=== PATIENT | male | born 1970 | race Caucasian/White ===

== ENCOUNTER 2023-02-08 11:15 | Emergency (ER) | payer OTHER, SELFPAY ==
[2023-02-08] VITALS (9 sets, daily range): BP systolic 114–157; BP diastolic 77–87; PULSE 70–79; RESP 15–24; TEMP 36.4–36.5; O2SAT 96–100
--- NOTE | ~2023-02-08 | US_ITS ---
US venous doppler LE DATE: 02/08/2023 13:18 INDICATION: Swelling and discoloration of left lower extremity for 2 weeks. History of deep venous th rombosis TECHNIQUE: Real-time and color flow imaging and Doppler analysis of the left lower extremity COMPARISON: None FINDINGS: There is partial thrombosis of the left greater saphenous vein of undetermined age. Thrombus is identified within the left popliteal vein There is flow in the left common femoral and proximal femoral vein. The distal femoral vein is not we ll demonstrated. Flow is demonstrated in the left posterior tibial vein. The peroneal veins are not visualized. IMPRESSION: Age-indeterminate thrombus was identified within the left greater saphenous vein and popl iteal vein. Left peroneal vein is not visualized. Reviewed, dictated and finalized at [facility]. Reviewed, dictated and finalized at [facility]. IMPRESSION: Age-indeterminate thrombus was identified within the left greater s aphenous vein and popliteal vein. Left peroneal vein is not visualized.
--- NOTE | 2023-02-08 13:30 | ED.EXTPRO ---
HPI - Extremity Problem General Chief complaint: Extremity Problem,Nontraumatic <Kiaa Kearns PA-C - Last Filed: 02/08/23 16:20> Stated complaint: left leg swelling <JOSUE Klein Last Filed: 02/08/23 16:20> Time Seen by Provider: 02/08/23 13:22 <JOUSE Klein Last Filed: 02/08/23 16:20> History of Present Illness HPI Narrative: 52 y/o M with prior hx of DVT in LLE reports for evaluation of LLE edema for the past couple of weeks. Pt states he was dx with DVT about 1.5 years ago and was taking Eliquis, however he would frequently miss doses. States he self discontinued his Eliquis ~3 months ago and thereafter developed more pain and swelling in his L leg. He denies chest pain, dyspnea, lightheadedness, syncope, fever. <Kaia Kearns PA-C - Last Filed: 02/08/23 16:20> Related Data Allergies/Adverse reactions: Allergies Allergy/AdvReac Type Severity Reaction Status Date / Time No Known Allergies Allergy Verified 02/08/23 13:16 <Kaia Kearns PA-C - Last Filed: 02/08/23 16:20> Review of Systems Review of Systems: CONSTITUTIONAL: Denies fever, chills EYES: Denies visual changes, redness, or discharge. ENT: Denies rhinorrhea, congestion, sore throat, or otalgia. CARDIOVASCULAR: Denies chest pain, palpitations, or edema. RESPIRATORY: Denies cough or dyspnea. GASTROINTESTINAL: Denies abdominal pain, nausea, vomiting, or diarrhea. GENITOURINARY: Denies dysuria or hematuria. SKIN: Denies rash or itching. MUSCULOSKELETAL: See HPI NEUROLOGIC: Denies headache, numbness, dizziness, or weakness. PSYCHIATRIC: Denies anxiety or depression. <Kaia Kearns PA-C - Last Filed: 02/08/23 16:20> [facility] Past Medical History Medical History: Medical History (Updated 02/08/23 @ 16:09 by Everett Alcantara MD) DVT (deep venous thrombosis) <Kaia Kearns PA-C - Last Filed: 02/08/23 16:20> Exam Narrative: GENERAL: Well-appearing, in no acute distress. HEAD: Normocephalic EYES: Normal conjunctiva ENT: Nares clear.? Mucous membranes moist. NECK: Supple.?? CHEST:? No respiratory distress. HEART: Regular rate and rhythm. ABDOMEN: Soft, nontender, normal active bowel sounds. EXTREMITIES: LLE with pitting edema extending from the dorsum of the foot to the proximal tibia and fibula. There is overlying blanching erythema with mild warmth to the lower extremity. Cap refill <2. DP pulse 2+. Sensation intact. SKIN: Warm, dry, no rash. NEURO: No focal deficits. PSYCH: Normal mood and affect. <Kaia Kearns PA-C - Last Filed: 02/08/23 16:20> Course Course Emergency Course: Patient resting comfortably. Discussed lab and imaging results. Patient will be restarted on his Eliquis for home. He will follow-up with his PCP in the next week. <Everett Alcantara MD - Last Filed: 02/08/23 16:11> Vital Signs Vital signs: Vital Signs Temperature 97.7 F 02/08/23 11:44 Pulse Rate 77 02/08/23 11:44 Respiratory Rate 20 02/08/23 11:44 Blood Pressure 142/81 H 02/08/23 11:44 Pulse Oximetry 97 02/08/23 11:44 Oxygen Delivery Room Air 02/08/23 11:44 Temperature 97.5 F L 02/08/23 13:15 Pulse Rate 76 02/08/23 16:15 Respiratory Rate 19 02/08/23 16:15 Blood Pressure 114/77 02/08/23 15:46 Pulse Oximetry 100 02/08/23 16:15 Oxygen Delivery Room Air 02/08/23 11:44 <Kaia Kearns PA-C - Last Filed: 02/08/23 16:20> Vital Signs Temperature 97.7 F 02/08/23 11:44 Pulse Rate 77 02/08/23 11:44 Respiratory Rate 20 02/08/23 11:44 Blood Pressure 142/81 H 02/08/23 11:44 Pulse Oximetry 97 02/08/23 11:44 Oxygen Delivery Room Air 02/08/23 11:44 Temperature 97.5 F L 02/08/23 13:15 Pulse Rate 76 02/08/23 16:15 Respiratory Rate 19 02/08/23 16:15 Blood Pressure 114/77 02/08/23 15:46 Pulse Oximetry 100 02/08/23 16:15 Oxygen Delivery Room Air 02/08/23 11:44 Jason Spencer
[2023-02-08 13:47] LABS: Basophils Percent Auto 0.5 % (0.2-1.2); Eosinophils Absolute Auto 0.2 K/mm3 (0-0.3); Eosinophils Percent Auto 2.8 % (0-4.4); Hematocrit 44.7 % (42.0-52.0); Hemoglobin 14.5 g/dL (14.0-18.0); Immature Granulocyte Absolute 0.05 K/mm3 (0.00-0.031); Immature Granulocyte Percent A 0.8 % (0-0.5); Lymphocytes Absolute Auto 1.58 K/mm3 (0.9-3.2); Lymphocytes Percent Auto 26.2 % (18.3-44.2); Mean Corpuscular HGB Conc 32.4 g/dl (32-36); Mean Corpuscular Volume 95.7 fl (80-100); Mean Platelet Volume 9.3 fl (7.4-10.4); Monocytes Absolute Auto 0.5 K/mm3 (0.1-0.6); Monocytes Percent Auto 7.5 % (2.6-8.5); Neutrophils Absolute Auto 3.8 K/mm3 (1.3-6.7); Neutrophils Percent Auto 62.2 % (45.5-73.1); Platelet Count Result 272 k/mm3 (150-375); Red Blood Count 4.67 M/mm3 (4.6-6.20); Red Cell Distribution Width 12.9 % (11.5-14.5)
[2023-02-08 13:48] LABS: Anion Gap 6 mmol/L (8-16); Blood Urea Nitrogen 15 mg/dL (9-20); Calcium 8.3 mg/dL (8.4-10.2); Carbon Dioxide 29 mmol/L (22-30); Chloride 104 mmol/L (98-107); Estimated CRCL calculation 95 ml/min; Estimated Glomerular Filt Rate > 60; Glucose 106 mg/dL (65-110); Potassium 3.5 mmol/L (3.4-5.0); Sodium 139 mmol/L (137-145)
[2023-02-08 14:00] LABS: Partial Thromboplastin Time 27.8 SECONDS (22.3-36.8); Prothrombin Time 13.3 Seconds (11.1-14.7)
== END 2023-02-08 16:20 | disposition home or self-care (01) ==
PROVIDERS: Physician Assistant; Emergency Provider Emergency Medicine; PCP Nurse Practitioner Adult Health
DX: I80.02 Phlebitis and thrombophlebitis of superficial vessels of left lower extremity (principal); T45.516A Underdosing of anticoagulants, initial encounter; Z91.138 Patient's unintentional underdosing of medication regimen for other reason; Z86.718 Personal history of other venous thrombosis and embolism
CPT/HCPCS: 36415; 80048; 85025; 85610; 85730; 93971; 99284